=== PATIENT | female | born 1935 | race Caucasian/White ===

== ENCOUNTER 2020-06-09 13:13 | Emergency (ER) | payer OTHER, MEDICARE ==
[2020-06-09 13:46] VITALS: BP 134/79; PULSE 89; TEMP 98.2; BMI 18.8
[2020-06-09] MEDS ORDERED: KETOROLAC TROMETHAMINE 15 MG/ML VIAL IM ONE (13:49)
[2020-06-09] MEDS ORDERED: KETOROLAC TROMETHAMINE 15 MG/ML VIAL ONE (13:56)
== END 2020-06-09 14:46 | disposition home or self-care (01) ==
LOC: FER 13:13
DX: M79.89 Other specified soft tissue disorders (principal)
CPT/HCPCS: 73560-TC-RT-FY; 99284-25

== ENCOUNTER 2022-06-28 08:34 | Emergency (ER) | payer OTHER, MEDICARE ==
[2022-06-28 08:48] VITALS: BP 152/97; PULSE 85; RESP 18; TEMP 99; BMI 43.0
[2022-06-28] MEDS ORDERED: DEXAMETHASONE SOD PHOSPHATE 10 MG/1 ML VIAL PO ONE (09:11)
[2022-06-28] MEDS ORDERED: DEXAMETHASONE 4 MG TABLET (FP) ONE (09:16)
[2022-06-28 11:03] LABS: THROAT:GRP A STREP NOT DETECTED (NOTDETECTED)
== END 2022-06-28 09:21 | disposition home or self-care (01) ==
LOC: FER 08:34
DX: U07.1 COVID-19 (principal)
CPT/HCPCS: 0241U-QW; 87651; 99283-25; J1100

== ENCOUNTER 2023-11-19 15:52 | Observation (INO) | payer OTHER, MEDICARE ==
[2023-11-19 16:02] VITALS: BMI 19.5
[2023-11-19] MEDS ORDERED: ACETAMINOPHEN 325 MG TABLET (FP) ONE (16:40)
[2023-11-19] MEDS: ACETAMINOPHEN 500 MG TABLET (FP) PO ONE (16:45)
[2023-11-19 16:53] LABS: INR 1.01 (0.83-1.09); PROTHROMBIN TIME (PATIENT) 11.5 SEC (9.7-13.0)
[2023-11-19 16:55] LABS: ACTIVATED PTT 30.4 SECONDS (25.2-36.5)
[2023-11-19 16:57] LABS: HEMATOCRIT 37.4 % (32.4-45.2); HEMOGLOBIN 11.9 G/dL (10.7-15.3); MCH 29.6 pg (25.7-33.7); MCHC 31.7 g/dl (32.0-36.0); MEAN CELL VOLUME 93.2 fl (80-96); MEAN PLT VOLUME 9.5 fl (7.5-11.1); PLATELET COUNT 260.7 10^3/uL (134-434); RBC 4.01 10^6/uL (3.60-5.2); RDW 15.5 % (11.6-15.6); WHITE BLOOD COUNT 8.4 10^3/uL (4.0-10.8)
[2023-11-19 17:07] LABS: ALBUMIN 4.4 g/dl (3.4-5.0); BILIRUBIN,TOTAL 0.3 mg/dl (0.2-1); CALCIUM 9.7 mg/dl (8.5-10.1); CREATININE 0.8 mg/dl (0.6-1.3); MAGNESIUM 2.2 mg/dL (1.8-2.4); POTASSIUM 4.2 mmol/L (3.5-5.1); TOT PROT 6.8 g/dl (6.4-8.2)
[2023-11-19 17:19] LABS: PLATELET ESTIMATE ADEQUATE
[2023-11-19] MEDS ORDERED: cefTRIAXone SODIUM 1 GM VIAL ONE (18:15)
[2023-11-19 20:26] LABS: URIC ACID CRYSTALS FEW /hpf (NONE SEEN)
[2023-11-19] MEDS: ACETAMINOPHEN 325 MG TABLET (FP) PO PRN (23:06)
[2023-11-19] MEDS: MELATONIN 5 MG TABLETS PO PRN (23:07)
[2023-11-20] MEDS: ZOLPIDEM TARTRATE 5 MG TABLET PO ONE (00:14)
[2023-11-20 07:57] LABS: CALCIUM 8.8 mg/dl (8.5-10.1); CREATININE 0.6 mg/dl (0.6-1.3); POTASSIUM 3.9 mmol/L (3.5-5.1)
[2023-11-20] MEDS: LOSARTAN POTASSIUM 25 MG TABLET PO SCH (09:04)
[2023-11-20] MEDS: CEFTRIAXONE 1 GM in DEXTROSE 5%-WATER - 50 ML IVPB SCH (09:04)
[2023-11-20] MEDS: SODIUM CHLORIDE 1,000 ML IV SCH (09:05)
[2023-11-20] MEDS: ATORVASTATIN CA 10 MG TABLET (FP) PO SCH (09:07)
[2023-11-20 09:33] LABS: EOS % 2.2 % (0-4.5); HEMATOCRIT 32.9 % (32.4-45.2); HEMOGLOBIN 11.2 GM/dL (10.7-15.3); LYMPH % 24.1 % (8-40); MCH 30.8 pg (25.7-33.7); MCHC 34.1 g/dl (32.0-36.0); MEAN CELL VOLUME 90.1 fl (80-96); MEAN PLT VOLUME 9.5 fl (7.5-11.1); MONO % 11.1 % (3.8-10.2); NEUT % 61.6 % (42.8-82.8); PLATELET COUNT 240 10^3/uL (134-434); RBC 3.65 M/mm3 (3.60-5.2); RDW 15.2 % (11.6-15.6); WHITE BLOOD COUNT 5.8 K/mm3 (4.0-10.0)
[2023-11-20 14:31] VITALS: RESP 18
[2023-11-20 17:02] VITALS: BP 151/68; PULSE 77; TEMP 98.8
== END 2023-11-20 17:34 | disposition home or self-care (01) ==
LOC: FER 15:52 → FM/S 18:16
PROVIDERS: ADMIT Internal Medicine
DX: N39.0 Urinary tract infection, site not specified (principal); S02.2XXA Fracture of nasal bones, initial encounter for closed fracture; R55 Syncope and collapse; W18.39XA Other fall on same level, initial encounter; Y93.89 Activity, other specified; Y92.091 Bathroom in other non-institutional residence as the place of occurrence of the external cause; I10 Essential (primary) hypertension; E78.5 Hyperlipidemia, unspecified; J34.89 Other specified disorders of nose and nasal sinuses
CPT/HCPCS: 0241U-QW; 36415; 70450-TC; 70486-TC; 71045-TC-FY; 72125-TC; 80048; 80053; 81003; 81015; 83735; 84443; 84484; 85025; 85027; 85610; 85730; 86850; 86900; 86901; 87086; 87186; 93005; 93306-TC; 93880-TC; 96361; 96365; 96375; 99285-25; G0378